=== PATIENT | male | born 1965 | race Caucasian/White ===

== ENCOUNTER 2017-02-16 13:53 | Emergency (ER) | payer OTHER ==
[2017-02-16 14:17] VITALS: BP 131/81; PULSE 68; RESP 20; TEMP 98.6
[2017-02-16] MEDS ORDERED: CLINDAMYCIN 150 MG CAP PO STA (14:45)
--- NOTE | 2017-02-16 14:48 | ED ---
ENT HPI - General Chief complaint: Dental/Oral Stated complaint: left ear pain, dental pain Time Seen by Provider: 02/16/17 14:12 Source: patient Mode of arrival: ambulatory Limitations: no limitations - Related Data Home Medications Medication Instructions Recorded Confirmed Ibuprofen [Motrin] 800 mg PO Q8H PRN 02/16/17 02/16/17 Previous Rx's Medication Instructions Recorded Acetaminophen-Codeine 300-30mg 1 tab PO Q6H PRN #15 tablet 02/16/17 [Tylenol #3] Clindamycin [Cleocin] 450 mg PO TID 7 Days 02/16/17 Allergies Allergy/AdvReac Type Severity Reaction Status Date / Time No Known Allergies Allergy Unverified 02/16/17 14:15 Review of Systems ROS Statement: Those systems with pertinent positive or pertinent negative responses have been documented in the HPI. ROS Other: All systems not noted in ROS Statement are negative. Past Medical History Past Medical History: No Reported History History of Any Multi-Drug Resistant Organisms: None Reported Additional Past Surgical History / Comment(s): Dental procedures Past Psychological History: No Psychological Hx Reported General Exam Limitations: no limitations Course Vital Signs 02/16/17 14:10 Temperature 98.6 F Pulse Rate 68 Respiratory 20 Rate Blood Pressure 131/81 O2 Sat by Pulse 100 Oximetry Disposition Clinical Impression: Pain, dental, Abscess, dental Disposition: HOME SELF-CARE Condition: Good Instructions: Dental Abscess (ED) Additional Instructions: Advised to take the antibiotic as directed. Follow-up with her primary care provider. Return to emergency department if any alarming signs or symptoms occur. Prescriptions: Acetaminophen-Codeine 300-30mg [Tylenol #3] 1 tab PO Q6H PRN #15 tablet PRN Reason: Pain Clindamycin [Cleocin] 450 mg PO TID 7 Days Referrals: Nonstaff,Physician [Primary Care Provider] - 1-2 days Time of Disposition: 14:47
== END 2017-02-16 15:01 | disposition home or self-care (01) ==
LOC: EC 13:53
DX: K04.7 Periapical abscess without sinus (principal); K08.89 Other specified disorders of teeth and supporting structures; H92.02 Otalgia, left ear
CPT/HCPCS: 99282